=== PATIENT | male | born 1960 | race Caucasian/White ===

== ENCOUNTER 2023-01-17 17:02 | Emergency (ER) | payer BC, SELFPAY ==
[2023-01-17 17:11] VITALS: BP 153/73; PULSE 69; RESP 20; TEMP 36.6; O2SAT 97; BMI 27.0
--- NOTE | 2023-01-17 17:25 | [facility].EDGENADL ---
Discharge Plan Disposition Patient Disposition: Home, Self-Care Condition: Good Prescriptions Prescriptions: New sulfamethoxazole-trimethoprim 800-160 mg tablet 1 tab PO BID 5 Days Qty: 10 0RF Referrals Follow up/Referrals: Provider,Referral, [Primary Care Provider] - See instructions Activity Restrictions/Add. Instructions Additional Instructions/Restrictions: Please follow-up with your primary care provider. Please return to the emergency department if you develop any new or worsening symptoms or become concerned for your health. Please take antibiotics as prescribed. Can please continue to monitor the cellulitis. If it continues to get larger despite antibiotics please return to the emergency department. Clinical Impressions Clinical Impression: Cellulitis Instructions Patient Instructions: Cellulitis Discharge ED Provider: Ever Patel General Adult HPI General Chief complaint: Skin/Abscess/Foreign Body Stated complaint: Right cut, unknown origin [id number] Time Seen by Provider: 01/17/23 17:12 Mode of Arrival: Ambulatory Source of Information: Patient Limitations: No Limitations Description of Symptoms (Recalled from ER Triage Doc. by RN): pt to ed c/o right hand sore. pt states he woke up yesterday morning and noticed it. pt denies any accident or injury. History of Present Illness HPI narrative: 62-year-old male, reportedly previously healthy presents with erythema to the dorsum of the right hand. Reports that he woke up with a scrape on his hand, he is unsure how it happened. He reports the redness has been enlarging since that time. Reports only like this has happened before. Denies any medical history, reports tetanus shot is up-to-date. Related Data Previous Rx's Medication Instructions Recorded sulfamethoxazole 800 1 tab PO BID 5 days #10 tabs 01/17/23 mg-trimethoprim 160 mg tablet Allergies Allergy/AdvReac Type Severity Reaction Status Date / Time No Known Allergies Allergy Verified 01/17/23 17:19 [facility] Disclaimer: The information contained in this section may have been updated after the patient was seen, as this information can be updated by other users. Social History Smoking Status: Never smoker alcohol intake: never current occupational status: employed Travel in the last 8 weeks: None ROS Obtained: Yes All systems reviewed & no additional complaints except as documented Physical Exam General General appearance: alert and in no apparent distress Head Head exam: atraumatic and normocephalic Eye Eye exam: Present normal appearance, PERRL and EOMI ENT ENT exam: Present normal oropharynx and normal external ear exam Neck Neck exam: Present normal inspection and full ROM Chest Chest inspection: Present normal inspection and symmetric chest wall rise; Absent tenderness Respiratory Respiratory exam: Present normal lung sounds bilaterally; Absent respiratory distress Cardiovascular Cardiovascular exam: Present regular rate and normal rhythm Abdominal Exam Abdominal exam: Present soft; Absent distention, tenderness or guarding Extremities Exam Extremities exam: Present other (Right hand: Abrasion over the dorsum of the hand, situated proximally to the second and third MCP joints. Partially scabbed over. Erythema extends over the dorsum of the hand and upwards through the second and third digits proximal phalanx.. No fluctuance noted.); Absent edema or joint swelling Back Exam Back exam: Present normal inspection; Absent tenderness Neurological Exam Neurological exam: Present alert and oriented X3; Absent motor sensory deficit Psychiatric Psychiatric exam: Present normal affect and normal mood Skin Skin exam: Present warm, dry and normal color Lymphatic Lymphatic Findings: no adenopathy Medical Decision Making Medical Records Medical records reviewed: Yes I reviewed the patient's medical records. Diogo Inquiry Pt receiving controlled substan
[2023-01-17 17:27] VITALS: BP 153/70; PULSE 84; RESP 17; TEMP 36.7; O2SAT 97
== END 2023-01-17 17:40 | disposition home or self-care (01) ==
LOC: ER 17:40
PROVIDERS: Emergency Provider Emergency Medicine
DX: L03.113 Cellulitis of right upper limb (principal); S60.511S Abrasion of right hand, sequela; X58.XXXS Exposure to other specified factors, sequela
CPT/HCPCS: 99283